=== PATIENT | female | born 1985 | race American Indian/Alaskan Native ===

== ENCOUNTER 2016-08-20 08:43 | Emergency (ER) | payer BC, OTHER ==
[2016-08-20 08:58] VITALS: BP 110/73
[2016-08-20] MEDS ORDERED: Sodium Chloride 0.9% 10 ML Syringe FLUSH PRN (09:18)
--- NOTE | 2016-08-20 09:25 | EDM.PDOC ---
[id number]: [id number] BAD STOMACH AND BACK PAIN VOMITING Time Seen by Provider: 08/20/16 08:57 Source of Information: Reports: Patient, Old Records, RN, RN Notes Reviewed History Limitations: Reports: No Limitations - History of Present Illness INITIAL COMMENTS - FREE TEXT/NARRATIVE: C/O onset of low abdominal pain last evening with some sharp aches in the RLQ, and generalized lower cramping associated with nausea. Pt vomited once late last night. Denies fever or chills. Reports pains radiating to Rt flank occasionally. Denies painful urination. Onset: Gradual Duration: Constant Location: Reports: Abdomen, Pelvis Quality: Reports: Ache Severity: Moderate Improves with: Reports: None Worsens with: Reports: None Associated Symptoms: Reports: No Other Symptoms Bilateral Middle Anterior Abdominal Pain Score (Numeric/FACES): 8 - Related Data Allergies Allergy/AdvReac Type Severity Reaction Status Date / Time No Known Allergies Allergy Verified 12/17/15 12:57 Home Meds: Home Meds Multivitamin [Multi Vitamin Daily] 1 each PO DAILY 04/22/13 [History] Past Medical History - Past Health History Medical/Surgical History: Denies Medical/Surgical History HEENT History: Reports: Impaired Vision Musculoskeletal History: Reports: Other (See Below) Other Musculoskeletal History: scoliosis extra cervical spine rib bilat Social & Family History - Family History Family Medical History: Noncontributory - Tobacco Use Smoking Status *Q: Never Smoker Years of Tobacco use: 6 Packs/Tins Daily: 0.5 Used Tobacco, but Quit: Yes Month Tobacco Last Used: 2014 Second Hand Smoke Exposure: Yes - Caffeine Use Caffeine Use: Reports: Soda - Alcohol Use Days Per Week of Alcohol Use: 2 Number of Drinks Per Day: 1 Total Drinks Per Week: 2 - Recreational Drug Use Recreational Drug Use: No Drug Use in Last 12 Months: No - Living Situation & Occupation Living situation: Reports: Single, with Family Occupation: Employed ED ROS GENERAL - Review of Systems Review Of Systems: ROS reveals no pertinent complaints other than HPI. ED EXAM, GI/ABD - Physical Exam Exam: See Below Exam Limited By: No Limitations General Appearance: Alert, WD/WN, No Apparent Distress Nose: Normal Inspection Throat/Mouth: Normal Inspection Head: Atraumatic, Normocephalic Neck: Normal Inspection Respiratory/Chest: No Respiratory Distress, Lungs Clear, Normal Breath Sounds, No Accessory Muscle Use, Chest Non-Tender Cardiovascular: Normal Peripheral Pulses, Regular Rate, Rhythm, No Edema, No Gallop, No JVD, No Murmur, No Rub, Tachycardia GI/Abdominal: Normal Bowel Sounds, Soft, No Organomegaly, No Distention, No Abnormal Bruit, No Mass, Pelvis Stable, Tenderness (generalized lower abdominal tenderness R>L). No: Guarding, Rebound, Rigidity (Female) Exam: Deferred Rectal (Female) Exam: Deferred Back Exam: Normal Inspection, Full Range of Motion. No: CVA Tenderness (L), CVA Tenderness (R) Extremities: Normal Inspection Neurological: Alert, Oriented, CN II-XII Intact, Normal Cognition, Normal Gait, No Motor/Sensory Deficits Psychiatric: Normal Affect, Normal Mood Skin Exam: Warm, Dry, Intact, Normal Color, No Rash Course - Vital Signs Last Recorded V/S: Last Vital Signs Temp 37.1 C 08/20/16 08:57 Pulse 124 H 08/20/16 08:57 Resp 20 08/20/16 08:57 BP 110/73 08/20/16 08:57 Pulse Ox 99 08/20/16 08:57 - Orders/Labs/Meds Orders: Active Orders 24 hr Category Date Time Status Peripheral IV Care [RC] . DIRECTED Care 08/20/16 09:18 Active Abdomen Pelvis wo Cont [CT] Urgent Exams 08/20/16 09:46 Taken CHLAMYDIA TRACHOMATIS/GC AMPLF Routine Lab 08/20/16 11:31 Received CULTURE URINE [RM] Stat Lab 08/20/16 09:13 Received Peripheral IV Insertion Adult [OM.PC] Stat Oth 08/20/16 09:18 Ordered Labs: Laboratory Tests 08/20/16 08/20/16 08/20/16 Range/Units 09:13 09:13 09:20 WBC 7.0 (5.0-10.0) 10^3/uL RBC 4.65 (4.2-5.4) 10^6/uL Hgb 14.4 (12.0-16.0) g/dL Hct 43.3 (37.0-47.0) % MCV 93.1 (80-100) fL MCH 31.0 (27.0-34.0) pg MCHC 33.3 (33.0-35.0) g/dL Plt Count 233 (150-450) 10^3/uL Neut % (Auto) 81.6 H (42.2-75.2) % Lymph % (Auto) 12.5 L (20.5-50.1) % Cocke % (Auto) 4.7 (2-8) % Eos % (Auto) 0.3 L (1.0-3.0) % Baso % (Auto) 0.9 (0.0-1.0) % Sodium (135-145) mmol/L Potassium (3.6-5.0) mmol/L Chloride (101-111) mmol/L Carbon Dioxide (21.0-31.0) mmol/L Anion Gap BUN (7-18) mg/dL Creatinine (0.6-1.3) mg/dL Est Cr Clr Drug Dosing mL/min Estimated GFR (MDRD) BUN/Creatinine Ratio Glucose (74-105) mg/dL Calcium (8.4-10.2) mg/dl Total Bilirubin (0.2-1.0) mg/dL AST (10-42) IU/L ALT (10-60) IU/L Alkaline Phosphatase (42-121) IU/L Total Protein (6.7-8.2) g/dl Albumin (3.2-5.5) g/dl Globulin Albumin/Globulin Ratio Amylase (28-100) U/L Lipase (22-51) U/L Urine Color Sondra (YELLOW) Urine Appearance Cloudy (CLEAR) Urine pH 5.5 (5.0-9.0) Ur Specific [place] >= 1.030 (1.005-1.030) Urine Protein 100 H (NEGATIVE) Urine Glucose (UA) Negative (NEGATIVE) Urine Ketones >=160 H (NEGATIVE) Urine Occult Blood Large H (NEGATIVE) Urine Nitrite Negative (NEGATIVE) Urine Bilirubin Large H (NEGATIVE) Urine Urobilinogen 1.0 (0.2-1.0) mg/dL Ur Leukocyte Esterase Negative (NEGATIVE) Urine RBC Semi-packed H /HPF Urine WBC 0-5 (0-5/HPF) /HPF Ur Epithelial Cells Few /HPF Urine Bacteria Moderate H (0-FEW/HPF) /HPF Hyaline Casts Rare H /LPF Urine Mucus Moderate H /LPF Urine HCG, Qual Negative 08/20/16 Range/Units 09:20 WBC (5.0-10.0) 10^3/uL RBC (4.2-5.4) 10^6/uL Hgb (12.0-16.0) g/dL Hct (37.0-47.0) % MCV (80-100) fL MCH (27.0-34.0) pg MCHC (33.0-35.0) g/dL Plt Count (150-450) 10^3/uL Neut % (Auto) (42.2-75.2) % Lymph % (Auto) (20.5-50.1) % Cocke % (Auto) (2-8) % Eos % (Auto) (1.0-3.0) % Baso % (Auto) (0.0-1.0) % Sodium 137 (135-145) mmol/L Potassium 3.6 (3.6-5.0) mmol/L Chloride 98 L (101-111) mmol/L Carbon Dioxide 21.0 (21.0-31.0) mmol/L Anion Gap 21.6 BUN 13 (7-18) mg/dL Creatinine 0.9 (0.6-1.3) mg/dL Est Cr Clr Drug Dosing 79.04 mL/min Estimated GFR (MDRD) > 60 BUN/Creatinine Ratio 14.44 Glucose 76 (74-105) mg/dL Calcium 9.6 (8.4-10.2) mg/dl Total Bilirubin 1.5 H (0.2-1.0) mg/dL AST 21 (10-42) IU/L ALT 11 (10-60) IU/L Alkaline Phosphatase 37 L (42-121) IU/L Total Protein 8.5 H (6.7-8.2) g/dl Albumin 5.1 (3.2-5.5) g/dl Globulin 3.4 Albumin/Globulin Ratio 1.50 Amylase 68 (28-100) U/L Lipase 25 (22-51) U/L Urine Color (YELLOW) Urine Appearance (CLEAR) Urine pH (5.0-9.0) Ur Specific [place] (1.005-1.030) Urine Protein (NEGATIVE) Urine Glucose (UA) (NEGATIVE) Urine Ketones (NEGATIVE) Urine Occult Blood (NEGATIVE) Urine Nitrite (NEGATIVE) Urine Bilirubin (NEGATIVE) Urine Urobilinogen (0.2-1.0) mg/dL Ur Leukocyte Esterase (NEGATIVE) Urine RBC /HPF Urine WBC (0-5/HPF) /HPF Ur Epithelial Cells /HPF Urine Bacteria (0-FEW/HPF) /HPF Hyaline Casts /LPF Urine Mucus /LPF Urine HCG, Qual Meds: Medications Discontinued Medications Generic Name Dose Route Start Last Admin Trade Name Freq PRN Reason Stop Dose Admin Azithromycin 1,000 mg 08/20/16 11:31 08/20/16 11:42 Zithromax PO 08/20/16 11:32 1,000 mg ONETIME ONE Administration Hydromorphone HCl 0.5 mg 08/20/16 09:31 08/20/16 09:46 Dilaudid IVPUSH 08/20/16 09:32 0.5 mg ONETIME ONE Administration Sodium Chloride 1,000 mls @ 999 mls/hr 08/20/16 09:31 08/20/16 09:50 Normal Saline IV 08/20/16 10:31 999 mls/hr .BOLUS ONE Administration Ceftriaxone Sodium 1 gm/ 50 mls @ 100 mls/hr 08/20/16 11:31 08/20/16 11:40 Sodium Chloride IV 08/20/16 12:00 100 mls/hr ONETIME ONE Administration Ondansetron HCl 4 mg 08/20/16 09:31 08/20/16 09:44 Zofran IV 08/20/16 09:32 4 mg ONETIME ONE Administration Sodium Chloride 10 ml 08/20/16 09:18 08/20/16 11:04 Saline Flush FLUSH 10 ml ASDIRECTED PRN Administration Keep Vein Open - Radiology Interpretation Free Text/Narrative:: CT Abd/Pelvis: no stone in urinary system, no appendicitis, Rt ovarian cyst with small amt. of free fluid in pelvis per Rad. report. CT Results Date: 08/20/16 Departure - Departure Time of Disposition: 11:44 Disposition: Home, Self-Care 01 Condition: Good Clinical Impression: Ovarian cyst - Discharge Information Instructions: Ovarian Cyst Referrals: PCP,None [Primary Care Provider] - Forms: ED Department Discharge Additional Instructions: Rx: Zofran 4mg Rx: Tramadol 50mg Use over the counter Ibuprofen (Motrin/Advil) 200mg: Take 3 tablets by mouth with food every 6 hours as needed for pain. Follow up in clinic for recheck in 2 days. - My Orders Last 24 Hours: My Active Orders 08/20/16 09:13 CULTURE URINE [RM] Stat 08/20/16 09:18 Peripheral IV Care [RC] . DIRECTED Peripheral IV Insertion Adult [OM.PC] Stat 08/20/16 09:46 Abdomen Pelvis wo Cont [CT] Urgent 08/20/16 11:31 CHLAMYDIA TRACHOMATIS/GC AMPLF Routine - Assessment/Plan Last 24 Hours: My Active Orders 08/20/16 09:13 CULTURE URINE [RM] Stat 08/20/16 09:18 Peripheral IV Care [RC] . DIRECTED Peripheral IV Insertion Adult [OM.PC] Stat 08/20/16 09:46 Abdomen Pelvis wo Cont [CT] Urgent 08/20/16 11:31 CHLAMYDIA TRACHOMATIS/GC AMPLF Routine
[2016-08-20] MEDS ORDERED: HYDROmorphone 1 MG/ML Syringe IVPUSH ONE (09:31)
[2016-08-20] MEDS ORDERED: Sodium Chloride 0.9% 1,000 ML IV ONE (09:31)
[2016-08-20] MEDS ORDERED: Ondansetron 4 MG/2 ML SDV IV ONE (09:31)
[2016-08-20 09:50] LABS: CHLORIDE,CL 98 mmol/L (101-111); SODIUM,NA 137 mmol/L (135-145)
[2016-08-20] MEDS ORDERED: cefTRIAXone 1 GM in Sodium Chloride 0.9% 50 ML IV ONE (11:31)
[2016-08-20] MEDS ORDERED: Azithromycin 250 MG Tab PO ONE (11:31)
== END 2016-08-20 12:12 | disposition home or self-care (01) ==
LOC: DL.ED 08:43
DX: N83.201 Unspecified ovarian cyst, right side (principal)
CPT/HCPCS: 36415; 74176; 80053; 81001; 81025; 82150; 83690; 85025; 87086; 87491; 87591; 96361; 96365; 96375; 99284; A9270; J0696; J1170; J2405; J7030; J7050

== ENCOUNTER 2018-10-12 11:49 | Emergency (ER) | payer SELFPAY ==
[2018-10-12 12:11] VITALS: BP 120/80
--- NOTE | 2018-10-12 12:47 | EDM.PDOC ---
Scribed by Pooja Arana 10/12/18 [id number] for Evan Romero MD ED HPI GENERAL MEDICAL PROBLEM - General Chief Complaint: Respiratory Problem Stated Complaint: LUNGS BURNING Time Seen by Provider: 10/12/18 11:55 Source of Information: Reports: Patient, RN, RN Notes Reviewed History Limitations: Reports: No Limitations - History of Present Illness INITIAL COMMENTS - FREE TEXT/NARRATIVE: Patient presents to ER with complaint that she has been sick for 2 weeks. Went to [facility] Saturday of this week. They gave her Medrol dose pack , nasal spray and Mucinex D. She is to the last dose of Medrol dose pack and is no better. She has burning in chest with cough, and green sputum. She has had no nebulizers or inhalers. Onset: Gradual Duration: Constant Location: Reports: Chest Quality: Reports: Ache Severity: Moderate Improves with: Reports: None Worsens with: Reports: None Associated Symptoms: Reports: No Other Symptoms - Related Data Allergies Allergy/AdvReac Type Severity Reaction Status Date / Time No Known Allergies Allergy Verified 10/12/18 12:11 Home Meds: Home Meds Multivitamin [Multi Vitamin Daily] 1 each PO DAILY 04/22/13 [History] Ferrous Sulfate 324 mg PO BID 10/12/18 [History] Past Medical History - Past Health History Medical/Surgical History: Denies Medical/Surgical History HEENT History: Reports: Impaired Vision Musculoskeletal History: Reports: Other (See Below) Other Musculoskeletal History: scoliosis extra cervical spine rib bilat Social & Family History - Family History Family Medical History: Noncontributory - Caffeine Use Caffeine Use: Reports: Soda - Living Situation & Occupation Living situation: Reports: Single, with Family Occupation: Employed ED ROS GENERAL - Review of Systems Review Of Systems: ROS reveals no pertinent complaints other than HPI. ED EXAM, GENERAL - Physical Exam Exam: See Below Exam Limited By: No Limitations General Appearance: Alert, WD/WN, No Apparent Distress Eye Exam: Bilateral Eye: Normal Inspection Nose: Normal Inspection, Normal Mucosa, No Blood Throat/Mouth: Normal Inspection, Normal Lips, Normal Teeth, Normal Gums, Normal Oropharynx, Normal Voice, No Airway Compromise Head: Atraumatic, Normocephalic Neck: Normal Inspection, Supple, Non-Tender, Full Range of Motion. No: Lymphadenopathy (L), Lymphadenopathy (R) Respiratory/Chest: No Respiratory Distress, No Accessory Muscle Use, Decreased Breath Sounds, Crackles. No: Rales, Rhonchi, Wheezing, Stridor Cardiovascular: Normal Peripheral Pulses, Regular Rate, Rhythm, No Edema GI/Abdominal: Soft, Non-Tender Back Exam: Normal Inspection, Full Range of Motion. No: CVA Tenderness (L), CVA Tenderness (R) Extremities: Normal Inspection, Normal Range of Motion, Non-Tender, Normal Capillary Refill, No Pedal Edema Neurological: Alert, Oriented, CN II-XII Intact, Normal Cognition, Normal Gait, No Motor/Sensory Deficits Psychiatric: Normal Affect, Normal Mood Skin Exam: Warm, Dry, Intact, Normal Color, No Rash Course - Vital Signs Last Recorded V/S: Last Vital Signs Temp 98.3 F 10/12/18 12:00 Pulse 100 10/12/18 12:00 Resp 14 10/12/18 12:00 BP 120/80 10/12/18 12:00 Pulse Ox 99 10/12/18 12:00 - Orders/Labs/Meds Orders: Active Orders 24 hr Category Date Time Status Chest 2V [CR] Stat Exams 10/12/18 12:01 Taken Labs: Laboratory Tests 10/12/18 10/12/18 Range/Units 12:10 12:10 WBC 5.9 (5.0-10.0) 10^3/uL RBC 4.40 (4.2-5.4) 10^6/uL Hgb 13.1 (12.0-16.0) g/dL Hct 40.2 (37.0-47.0) % MCV 91.4 (80-100) fL MCH 29.8 (27.0-34.0) pg MCHC 32.6 L (33.0-35.0) g/dL Plt Count 278 (150-450) 10^3/uL Neut % (Auto) 68.0 (42.2-75.2) % Lymph % (Auto) 23.6 (20.5-50.1) % [place] % (Auto) 6.4 (2-8) % Eos % (Auto) 1.0 (1.0-3.0) % Baso % (Auto) 1.0 (0.0-1.0) % D-Dimer, Quantitative < 100 (0-400) ng/mL Departure - Departure Time of Disposition: 12:42 Disposition: Home, Self-Care 01 Condition: Good Clinical Impression: Pleurisy without effusion, Bronchitis - Discharge Information *PRESCRIPTION DRUG MONITORING PROGRAM REVIEWED*: No *COPY OF PRESCRIPTION DRUG MONITORING REPORT IN PATIENT BRENDEN: No Instructions: Pleurisy, Acute Bronchitis, Adult, [id number] Forms: ED Department Discharge Additional Instructions: Rx: Tylenol No. 3 *Do not drive while under the influence of this medication. Rx: Naprosyn 500mg *Take with meals. Follow up in clinic in 3 to 5 days for recheck if not improving. - My Orders Last 24 Hours: My Active Orders 10/12/18 12:01 Chest 2V [CR] Stat - Assessment/Plan Last 24 Hours: My Active Orders 10/12/18 12:01 Chest 2V [CR] Stat I have read and agree with the documentation that has been completed regarding this visit. By signing this record, I attest that the documentation was completed in my physical presence and is an accurate record of the encounter.
== END 2018-10-12 12:56 | disposition home or self-care (01) ==
LOC: DL.ED 11:49
DX: J40 Bronchitis, not specified as acute or chronic (principal); R09.1 Pleurisy
CPT/HCPCS: 36415; 71046; 85025; 85379; 99283; 99283-25

== ENCOUNTER 2019-06-09 06:10 | Day surgery (SDC) | payer BC, OTHER ==
[2019-06-09] MEDS ORDERED: fentaNYL 100 MCG/2 ML SDV IV ONE ×5 (06:11→07:41)
[2019-06-09] MEDS ORDERED: Midazolam 1 MG/ML 2 ML SDV IV ONE ×7 (06:11→07:39)
[2019-06-09] MEDS ORDERED: fentaNYL 100 MCG/2 ML SDV ONE (06:24)
[2019-06-09] MEDS ORDERED: Midazolam 1 MG/ML 2 ML SDV ONE (06:24)
[2019-06-09] MEDS ORDERED: Dextrose 5%-0.45% NaCl 1,000 ML IV SCH ×2 (06:36→07:30)
[2019-06-09] MEDS ORDERED: Sodium Chloride 0.9% 10 ML Syringe FLUSH PRN (07:29)
--- NOTE | 2019-06-09 08:55 | OR ---
DATE: 06/09/2019 PROCEDURE: Total colonoscopy. INSTRUMENT USED: PCF-H190DL Olympus video colonoscope. PREMEDICATIONS: Fentanyl 150 mcg intravenous, Versed 4 mg intravenous, nasal O2 cannula. The procedure was done under pulse oximetry, BP recording, and fancy needleworker. INDICATION: The patient with rectal bleeding. Colonoscopic examination is done for detection of any polypoid lesions and removal, endoscopic hemostasis therapy if needed. DESCRIPTION OF PROCEDURE: Initial rectal exam was unremarkable. Rigid anoscopy was normal. The colonoscope was passed with ease up to the ileocecal area. Photographs were taken. There was normal appearing cecum identified by landmarks of appendiceal orifice and double bulged ileocecal folds. No bleeding was noted from any of the visualized areas at the commencement of the examination. The bowel preparation was only adequate. Almond scale 2 in the right and left colon, 3 in the transverse colon, total score 7. No stricture. No vascular ectasia. No large isolated ulcerations seen. No evidence of diffuse inflammatory bowel disease in the form of friability, contact bleeding, or ulcerations. No polyp or tumor mass identified. Probing the proximal sides of folds and flexures using adequate distention and clearing up the stool material, withdrawal of the scope was made, cecum to rectum time over 6 minutes. No bleeding was noted from any of the visualized areas at the completion of examination. IMPRESSION: Normal study. The patient tolerated the procedure well. [facility] /[id number]
[2019-06-09 12:12] VITALS: BP 91/60; PULSE 66
== END 2019-06-09 09:50 | disposition home or self-care (01) ==
LOC: DL.ENDO 06:10
PROVIDERS: ATTEND Internal Medicine Gastroenterology
DX: K62.5 Hemorrhage of anus and rectum (principal); Z87.891 Personal history of nicotine dependence
CPT/HCPCS: 45378; J2250; J3010; J7042; G0121

== ENCOUNTER 2019-11-22 22:22 | Emergency (ER) | payer OTHER | END 2019-11-22 23:15 | disposition left against medical advice (07) | LOC: DL.ED 22:22 | DX: Z53.21 Procedure and treatment not carried out due to patient leaving prior to being seen by health care provider (principal) ==

== ENCOUNTER 2021-02-19 13:34 | Emergency (ER) | payer OTHER ==
[2021-02-19 16:01] VITALS: PULSE 120
[2021-02-19 16:15] LABS: CORONAVIRUS COVID-19 NAA NEGATIVE (NEGATIVE); RESPIRATORY SYNCYTIAL VIR NAA NEGATIVE (NEGATIVE)
== END 2021-02-19 19:19 | disposition left against medical advice (07) ==
LOC: DL.ED 13:34
DX: Z53.21 Procedure and treatment not carried out due to patient leaving prior to being seen by health care provider (principal)
CPT/HCPCS: 0241U; 87081; 87430

== ENCOUNTER 2023-05-01 23:38 | Emergency (ER) | payer OTHER ==
[2023-05-01] MEDS ORDERED: Sodium Chloride 0.9% 10 ML Syringe FLUSH PRN (23:51)
[2023-05-01 23:56] VITALS: BP 124/90; PULSE 82
[2023-05-02 00:01] LABS: BASOPHILS PERCENT AUTO 0.5 % (0.0-1.0); HEMATOCRIT 40.6 % (37.0-47.0); HEMOGLOBIN 13.1 g/dL (12.0-16.0); MEAN CORPUSCULAR HGB CONC 32.3 g/dL (33.0-35.0); MEAN CORPUSCULAR VOLUME 89.8 fL (80-100); MONOCYTES PERCENT AUTO 8.2 % (2-8); NEUTROPHILS PERCENT AUTO 52.3 % (42.2-75.2); PLATELET COUNT,PLT 310 10^3/uL (150-450); RED BLOOD CELL COUNT 4.52 10^6/uL (4.2-5.4); WHITE BLOOD CELL COUNT,WBC 9.4 10^3/uL (5.0-10.0)
[2023-05-02] MEDS: Morphine 4 MG/ML Syringe IVPUSH ONE ×2 (00:04→02:08)
[2023-05-02] MEDS: Ondansetron 4 MG/2 ML SDV IVPUSH ONE (00:04)
[2023-05-02 00:20] LABS: A/G RATIO 1.1; ANION GAP 12.6 mEq/L (7-13); BILIRUBIN TOTAL 0.3 mg/dL (0.2-1.0); BUN/CREATININE RATIO 12.6 (No establ ref range); CALCIUM 9.1 mg/dL (8.5-10.1); CREATININE 1.03 mg/dL (0.55-1.02); EST CRCL DRUG DOSING (CG) 72.02 mL/min; POTASSIUM,K 3.6 mmol/L (3.5-5.1); PROTEIN TOTAL,TP 7.6 g/dL (6.4-8.2)
[2023-05-02] MEDS: Iopamidol 612 MG/ML 100 ML Bottle IVPUSH ONE (00:49)
[2023-05-02 01:35] LABS: APPEARANCE,URINE CLEAR (CLEAR); BILIRUBIN,URINE NEGATIVE (NEGATIVE); COLOR,URINE YELLOW (YELLOW); GLUCOSE,URINE NEGATIVE (NEGATIVE); KETONES,URINE NEGATIVE (NEGATIVE); LEUKOCYTE ESTERASE,URINE NEGATIVE (NEGATIVE); NITRITE,URINE NEGATIVE (NEGATIVE); OCCULT BLOOD,URINE NEGATIVE (NEGATIVE); PH,URINE 6.5 (5.0-9.0); PROTEIN,URINE NEGATIVE (NEGATIVE); UROBILINOGEN,URINE 0.2 mg/dL (0.2-1.0)
== END 2023-05-02 02:15 | disposition home or self-care (01) ==
LOC: DL.ED 23:38
DX: R10.11 Right upper quadrant pain (principal); R11.0 Nausea; Z86.16 Personal history of COVID-19
CPT/HCPCS: 36415; 74177; 80053; 81003; 81025; 83690; 84484; 85025; 96374; 96375; 96376; 99284; J2270; J2405; Q9967

== ENCOUNTER 2023-12-07 01:34 | Emergency (ER) | payer OTHER ==
[2023-12-07 01:46] VITALS: BP 101/73; PULSE 69
[2023-12-07] MEDS ORDERED: Sodium Chloride 0.9% 10 ML Syringe FLUSH PRN (01:48)
[2023-12-07] MEDS: Ondansetron 4 MG/2 ML SDV IVPUSH ONE (02:01)
[2023-12-07] MEDS: HYDROmorphone 1 MG/ML Syringe IVPUSH ONE (02:01)
[2023-12-07 02:05] LABS: BASOPHILS PERCENT AUTO 0.5 % (0.0-1.0); EOSINOPHILS PERCENT AUTO 3.5 % (1.0-3.0); HEMATOCRIT 40.9 % (37.0-47.0); HEMOGLOBIN 13.2 g/dL (12.0-16.0); LYMPHOCYTES PERCENT AUTO 38.9 % (20.5-50.1); MEAN CORPUSCULAR HEMOGLOBIN 28.4 pg (27.0-34.0); MEAN CORPUSCULAR HGB CONC 32.3 g/dL (33.0-35.0); MONOCYTES PERCENT AUTO 8.5 % (2-8); NEUTROPHILS PERCENT AUTO 48.6 % (42.2-75.2); PLATELET COUNT,PLT 316 10^3/uL (150-450); RED BLOOD CELL COUNT 4.65 10^6/uL (4.2-5.4); WHITE BLOOD CELL COUNT,WBC 7.4 10^3/uL (5.0-10.0)
[2023-12-07 02:26] LABS: ALBUMIN 3.8 g/dL (3.4-5.0); ANION GAP 12.8 mEq/L (7-13); BILIRUBIN TOTAL 0.4 mg/dL (0.2-1.0); BUN/CREATININE RATIO 10.2 (No establ ref range); CALCIUM 9.1 mg/dL (8.5-10.1); CREATININE 0.98 mg/dL (0.55-1.02); EST CRCL DRUG DOSING (CG) 74.95 mL/min; MAGNESIUM 1.9 mg/dL (1.8-2.4); POTASSIUM,K 3.8 mmol/L (3.5-5.1); PROTEIN TOTAL,TP 7.7 g/dL (6.4-8.2)
[2023-12-07 02:29] LABS: LACTIC ACID 1.5 mmol/L (0.4-2.0)
[2023-12-07] MEDS: Iopamidol 612 MG/ML 100 ML Bottle IVPUSH ONE (02:59)
[2023-12-07 03:42] LABS: APPEARANCE,URINE CLEAR (CLEAR); BILIRUBIN,URINE NEGATIVE (NEGATIVE); COLOR,URINE YELLOW (YELLOW); GLUCOSE,URINE NEGATIVE (NEGATIVE); KETONES,URINE NEGATIVE (NEGATIVE); LEUKOCYTE ESTERASE,URINE NEGATIVE (NEGATIVE); NITRITE,URINE NEGATIVE (NEGATIVE); OCCULT BLOOD,URINE NEGATIVE (NEGATIVE); PROTEIN,URINE NEGATIVE (NEGATIVE); UROBILINOGEN,URINE 0.2 mg/dL (0.2-1.0)
[2023-12-07] MEDS: Lactated Ringers 1,000 ML IV ONE (04:37)
== END 2023-12-07 07:09 | disposition home or self-care (01) ==
LOC: DL.ED 01:34
DX: K59.09 Other constipation (principal); E66.9 Obesity, unspecified; Z68.30 Body mass index [BMI] 30.0-30.9, adult; Z86.16 Personal history of COVID-19; Z79.899 Other long term (current) drug therapy
CPT/HCPCS: 36415; 74177; 80053; 81003; 83605; 83690; 83735; 85025; 96374; 96375; 99284; J1171; J2405; J7120; Q9967